=== PATIENT | male | born 1995 | race Caucasian/White ===

== ENCOUNTER 2017-11-07 15:21 | Emergency (ER) | payer OTHER ==
[2017-11-07 18:07] VITALS: BP 115/64
--- NOTE | 2017-11-07 18:28 | UC ---
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 He had some pain in his MCPJs yesterday evening and awoke with severe R shoulder pain. No associated injury or acute event that he can recall. No h/o of other joint pain or swelling. - History of Current Complaint Chief Complaint: UCUpperExtremity Stated Complaint: RIGHT HAND/SHOULDER PAIN Pain Intensity: 5 - Allergies/Home Medications Allergies/Adverse Reactions: Allergies Allergy/AdvReac Type Severity Reaction Status Date / Time MS Penicillins [Penicillins] Allergy Severe Hives, Verified 11/07/17 18:00 Vomiting Home Medications: Home Medications Tramadol HCl [Ultram] 50 mg PO QID PRN 11/07/17 [History Confirmed 11/07/17] PMH/Surg Hx/FS Hx/Imm Hx Previously Healthy: Yes - Surgical History Surgical History: Yes Surgery Procedure, Year, and Place: 2014 - Family History Known Family History: Positive: Hypertension Negative: Diabetes - Social History Alcohol Use: Weekly Substance Use Type: None Smoking Status (MU): Current Every Day Smoker Type: Cigarettes Amount Used/How Often: 1/2 PPD Length of Time of Smoking/Using Tobacco: started at age 16 Have You Smoked in the Last Year: Yes Household Exposure Type: Cigarettes - Immunization History Most Recent Influenza Vaccination: Not the Season Review of Systems Constitutional: Negative Skin: Negative Eyes: Negative ENT: Negative Respiratory: Negative Cardiovascular: Negative Gastrointestinal: Negative Genitourinary: Negative Motor: Decreased ROM Musculoskeletal: Arthralgia Neurological: Negative Psychological: Negative Is Patient Immunocompromised?: No All Other Systems Reviewed And Are Negative: Yes Physical Exam Triage Information Reviewed: Yes Appearance: Well-Appearing Vital Signs: Initial Vital Signs Temp 98.5 F 11/07/17 18:02 Pulse 66 11/07/17 18:02 Resp 18 11/07/17 18:02 BP 115/64 11/07/17 18:02 Pulse Ox 99 11/07/17 18:02 Vital Signs Reviewed: Yes ENT: Positive: Normal ENT inspection Neck exam: Normal Neck: Positive: Supple Respiratory: Positive: Chest non-tender, Lungs clear Cardiovascular Exam: Normal Cardiovascular: Positive: RRR, No Murmur Abdomen Description: Positive: Nontender Musculoskeletal: Positive: Other: - severely reduced ROM at the shoulder due to severe pain, unable to assess strength accurately due to pain. TTP diffusely including trapezius. Hand exam is benign Shoulder Course/Dx - Course Course Of Treatment: This is an otherwise healthy 22 yo male who presents with sudden onset shoulder pain without acute injury. - Differential Dx/Diagnosis Differential Diagnosis/HQI/PQRI: Arthritis, Bursitis, Contusion Provider Diagnoses: 1. R shoulder pain - likely muscle spasm Discharge - Discharge Plan Condition: Stable Disposition: HOME Prescriptions: Cyclobenzaprine TAB* [Flexeril 10 MG TAB*] 10 mg PO TID PRN #45 tab PRN Reason: muscle pain/spasm Naproxen Sodium [Anaprox Ds] 550 mg PO BID #28 tab Patient Education Materials: Shoulder Pain (ED) Forms: *Work Release Referrals: hZao Burdick MD [Primary Care Provider] - 1 Week Additional Instructions: Instructions: 1. Please take naproxen twice daily for 2 weeks (do no combine with ibuprofen) 2. Use flexeril as needed or as tolerated up to 3 times daily (be aware of sedating effects) 3. Follow up with PCP in 1 week to reassess
== END 2017-11-07 18:28 | disposition home or self-care (01) ==
LOC: UCCORT 15:21
DX: M25.511 Pain in right shoulder (principal); F17.210 Nicotine dependence, cigarettes, uncomplicated
CPT/HCPCS: 99212; G0463

== ENCOUNTER 2018-02-02 12:18 | Emergency (ER) | payer OTHER ==
[2018-02-02 13:50] VITALS: BP 122/65
[2018-02-02] MEDS ORDERED: Lidocaine 2% PF * 5 ML VIAL INJ ONE (14:07)
[2018-02-02] MEDS ORDERED: Lidocaine 2% PF * 5 ML VIAL ONE (14:07)
--- NOTE | 2018-02-02 14:26 | UC ---
Skin Complaint HPI - HPI Summary HPI Summary: Patient has access on the left side of his upper cheek on and off for the last several months he did open it himself it drained and went away. But the past 2 weeks has returned is now and soft in the center tense painful red - History of Current Complaint Chief Complaint: UCSkin Time Seen by Provider: 02/02/18 13:52 Stated Complaint: FACIAL SKIN COMPLAINT Hx Obtained From: Patient Onset/Duration: Gradual Onset, Lasting Weeks - 2, Still Present Timing: Constant Onset Severity: Mild Current Severity: Moderate Location: Discrete - left upper check Character: Pain, Redness, Raised Aggravating Factor(s): Touch Alleviating Factor(s): Nothing Associated Signs & Symptoms: Positive: Negative - Allergy/Home Medications Allergies/Adverse Reactions: Allergies Allergy/AdvReac Type Severity Reaction Status Date / Time Penicillins Allergy Nausea And Verified 02/02/18 13:48 Vomiting Review of Systems Constitutional: Negative Skin: Other - abscess left upper check Eyes: Negative ENT: Negative Respiratory: Negative Cardiovascular: Negative Gastrointestinal: Negative Genitourinary: Negative Motor: Negative Neurovascular: Negative Musculoskeletal: Negative Neurological: Negative Psychological: Negative Is Patient Immunocompromised?: No All Other Systems Reviewed And Are Negative: Yes PMH/Surg Hx/FS Hx/Imm Hx Previously Healthy: Yes - Surgical History Surgical History: Yes Surgery Procedure, Year, and Place: 2014 - Family History Known Family History: Positive: Hypertension Negative: Diabetes - Social History Occupation: Unemployed Lives: With Family Alcohol Use: Occasionally Substance Use Type: None Smoking Status (MU): Current Every Day Smoker Type: Cigarettes Amount Used/How Often: 3 per day Length of Time of Smoking/Using Tobacco: started at age 16 Have You Smoked in the Last Year: Yes Household Exposure Type: Cigarettes - Immunization History Most Recent Influenza Vaccination: Not the Season Physical Exam Triage Information Reviewed: Yes Appearance: Well-Appearing, No Pain Distress, Well-Nourished Vital Signs: Initial Vital Signs Temp 98.5 F 02/02/18 13:45 Pulse 78 02/02/18 13:45 Resp 16 02/02/18 13:45 BP 122/65 02/02/18 13:45 Pulse Ox 100 02/02/18 13:45 Vital Signs Reviewed: Yes Eye Exam: Normal Eyes: Positive: Conjunctiva Clear ENT Exam: Normal ENT: Positive: Normal ENT inspection, Hearing grossly normal. Negative: Nasal congestion, Trismus, Muffled voice, Hoarse voice, Sinus tenderness Dental Exam: Normal Neck exam: Normal Neck: Positive: Supple, Nontender Respiratory Exam: Normal Respiratory: Positive: Chest non-tender, No respiratory distress, No accessory muscle use Cardiovascular Exam: Normal Cardiovascular: Positive: RRR, Pulses Normal, Brisk Capillary Refill Musculoskeletal Exam: Normal Musculoskeletal: Positive: Strength Intact, ROM Intact, No Edema Neurological Exam: Normal Neurological: Positive: Alert, Muscle Tone Normal Psychological Exam: Normal Skin Exam: Normal Skin: Positive: Other - 1.5 cm red raised tense with fluctulant center abscesfollows left upper check Re-Evaluation - Re-Evaluation First Eval Change: Improved - Patient tolerated well dry sterile dressing applied, culture obtained Course/Dx - Course Course Of Treatment: Frequent warm washes and compresses, Bactrim pain medication for discomfort follow with PCP - Diagnoses Provider Diagnoses: Incision and drainage of abscess left upper cheek Procedures - Incision and Drainage Site: left upper cheek Anesthesia: Local, Lidocaine - 1 will /2 cc of 2 % the entire evening as I totally agree with letting people who have addictions run course LO like is with out epi Instrument(s): Scalpel - small miky made in fluctulant area moderate abount of purulent drainage-- Discharge - Sign-Out/Discharge Documenting (check all that apply): Discharge/Admit/Transfer - Discharge Plan Condition: Stable Disposition: HOME Prescriptions: Hydrocodone/Acetaminophen [Hydrocodone/Acetaminophen 5-325 mg] 1 tab PO Q6H PRN #5 tab MDD 4 PRN Reason: pain Sulfamethox/Trimethoprim DS* [Bactrim DS 800/160 TAB*] 1 tab PO BID #14 tab Patient Education Materials: Abscess (ED), Joint Incision and Drainage (DC), Heat Pack Application (ED) Referrals: Zhao Burdick MD [Primary Care Provider] - 1 Week - Billing Disposition and Condition Condition: STABLE Disposition: HOME
== END 2018-02-02 14:33 | disposition home or self-care (01) ==
LOC: UCCORT 12:18
DX: L02.01 Cutaneous abscess of face (principal); Z87.891 Personal history of nicotine dependence; Z88.0 Allergy status to penicillin
CPT/HCPCS: 10060; 87070; 87205; 99212; G0463

== ENCOUNTER 2019-10-24 10:35 | Emergency (ER) | payer SELFPAY ==
[2019-10-24 11:20] VITALS: BP 115/63
--- NOTE | 2019-10-24 11:28 | UC ---
Headache HPI - HPI Summary HPI Summary: 24yo male with migraine x2 days. Patient notes h/o migraine. Denies worst of his life. Describes as sharp pulsing pain in the front of his head." notes photophobia. Denies vision changes. Denies arm/leg weakness. Denies n/v. States he has taken tylenol and left over tramadol without relief. States he normally takes sumatriptan for migraines but does not currently have any. States has an appt in a couple days with pcp for refill. - History Of Current Complaint Stated Complaint: JO Hx Obtained From: Patient Pain Intensity: 10 Pain Scale Used: 0-10 Numeric - Allergies/Home Medications Allergies/Adverse Reactions: Allergies Allergy/AdvReac Type Severity Reaction Status Date / Time Penicillins AdvReac Nausea And Verified 10/24/19 11:16 Vomiting Home Medications: Home Medications Acetaminophen [Acetaminophen Extra Strength] 1,000 mg PO Q6H PRN 10/24/19 [ History Confirmed 10/24/19] traMADol TAB* [Ultram*] 50 mg PO ONCE 10/24/19 [History Confirmed 10/24/19] PMH/Surg Hx/FS Hx/Imm Hx Previously Healthy: Yes Neurological History: Migraine - Surgical History Surgical History: Yes Surgery Procedure, Year, and Place: 2014 - Family History Known Family History: Positive: Hypertension Negative: Diabetes - Social History Alcohol Use: Occasionally Substance Use Type: None Smoking Status (MU): Light Every Day Tobacco Smoker Type: Cigarettes Amount Used/How Often: ~1/7 PPD Length of Time of Smoking/Using Tobacco: Since Age 16 Have You Smoked in the Last Year: Yes Household Exposure Type: Cigarettes - Immunization History Most Recent Influenza Vaccination: Not the 2015/2016 Season Review of Systems All Other Systems Reviewed And Are Negative: Yes Constitutional: Positive: Negative. Negative: Fever, Chills Eyes: Positive: Photophobia. Negative: Blurred Vision, Diplopia Respiratory: Positive: Negative Cardiovascular: Positive: Negative Gastrointestinal: Positive: Negative. Negative: Vomiting, Nausea Musculoskeletal: Positive: Negative Neurological: Positive: Headache Physical Exam Triage Information Reviewed: Yes Appearance: Well-Appearing Vital Signs: Initial Vital Signs Temp 98.5 F 10/24/19 11:13 Pulse 60 10/24/19 11:13 Resp 14 10/24/19 11:13 BP 115/63 10/24/19 11:13 Pulse Ox 99 10/24/19 11:13 Vital Signs Reviewed: Yes Eye Exam: Other - PERRLA. EOM intact Eyes: Positive: Conjunctiva Clear ENT: Positive: Hearing grossly normal Neck: Positive: Supple, Nontender Respiratory Exam: Normal Respiratory: Positive: Lungs clear, Normal breath sounds, No respiratory distress Cardiovascular Exam: Normal Cardiovascular: Positive: RRR, No Murmur Neurological Exam: Other - CN II-XII intact Neurological: Positive: Alert Psychological: Positive: Age Appropriate Behavior Skin Exam: Normal Headache Course/Dx - Course Course Of Treatment: Patient received toradol IM here and voiced migraine relief after ~20 minutes. Patient states that he will follow up on Saturday with pcp for refill on migraine medications. I instructed to go to ED with any new or worsening symptoms. Patient voiced understanding and agreed with treatment plan. - Differential Dx/Diagnosis Differential Diagnosis/HQI/PQRI: Migraine, Tension Headache Provider Diagnosis: Migraine Discharge ED - Sign-Out/Discharge Documenting (check all that apply): Patient Departure All imaging exams completed and their final reports reviewed: No Studies - Discharge Plan Condition: Stable Disposition: HOME Patient Education Materials: Migraine Headache (ED) Forms: *Work Release Referrals: Zhao Burdick MD [Primary Care Provider] - 2 Days Additional Instructions: You received a shot of toradol for your migraine today. You may continue to take tylenol as directed for pain relief. Do not take any ibuprofen or other NSAID until tomorrow. Continue to rest. It is important that you attend your appointment with your primary care provider as scheduled for refill of your migraine medication. Go to the emergency room with any new or worsening symptoms. - Billing Disposition and Condition Condition: STABLE Disposition: Home
[2019-10-24] MEDS ORDERED: Ketorolac *IM* INJ* 60 MG/2 ML VIAL IM ONE (11:31)
== END 2019-10-24 12:22 | disposition home or self-care (01) ==
LOC: UCCORT 10:35
DX: G43.909 Migraine, unspecified, not intractable, without status migrainosus (principal); F17.210 Nicotine dependence, cigarettes, uncomplicated; Z88.0 Allergy status to penicillin
CPT/HCPCS: 96372; 99211; G0463; J1885

== ENCOUNTER 2019-10-27 11:26 | Emergency (ER) | payer SELFPAY ==
--- NOTE | 2019-10-27 12:25 | UC ---
FLU HPI - History of Current Complaint Stated Complaint: JO/COUGH Time Seen by Provider: 10/27/19 12:25 - Allergy/Home Medications Allergies/Adverse Reactions: Allergies Allergy/AdvReac Type Severity Reaction Status Date / Time Penicillins AdvReac Nausea And Verified 10/24/19 11:16 Vomiting PMH/Surg Hx/FS Hx/Imm Hx - Surgical History Surgical History: Yes Surgery Procedure, Year, and Place: 2014 - Family History Known Family History: Positive: Hypertension Negative: Diabetes - Social History Alcohol Use: Occasionally Substance Use Type: None Smoking Status (MU): Light Every Day Tobacco Smoker Type: Cigarettes Amount Used/How Often: ~1/7 PPD Length of Time of Smoking/Using Tobacco: Since Age 16 Have You Smoked in the Last Year: Yes Household Exposure Type: Cigarettes - Immunization History Most Recent Influenza Vaccination: Not the 2015/2016 Season Discharge ED - Discharge Plan Referrals: Zhao Burdick MD [Primary Care Provider] -
--- NOTE | 2019-10-27 12:44 | UC ---
FLU HPI - HPI Summary HPI Summary: 24 yo male presents with sinus symptoms. He tells me that he was seen here a few days ago for a migraine and had some mild sinus congestion at that time. His migraine is feeling much better, but his sinus congestion has gotten much worse. He is having pain/pressure/congestion mostly in the frontal sinuses. Has not been taking anything OTC for his symptoms. Denies fever, chills, sore throat , rash, cough. - History of Current Complaint Stated Complaint: JO/COUGH Time Seen by Provider: 10/27/19 12:25 Hx Obtained From: Patient Onset/Duration: Gradual Onset Severity Currently: Mild Severity Initially: Mild Pain Intensity: 4 Pain Scale Used: 0-10 Numeric - Allergy/Home Medications Allergies/Adverse Reactions: Allergies Allergy/AdvReac Type Severity Reaction Status Date / Time Penicillins AdvReac Nausea And Verified 10/27/19 12:41 Vomiting Home Medications: Home Medications Ibuprofen TAB* [Advil TAB*] 200 mg PO ONCE PRN 10/27/19 [History Confirmed 10/27] PMH/Surg Hx/FS Hx/Imm Hx - Additional Past Medical History Additional PMH: None - Surgical History Surgical History: Yes Surgery Procedure, Year, and Place: 2014 - Family History Known Family History: Positive: Hypertension Negative: Diabetes - Social History Occupation: Employed Full-time Lives: With Family Alcohol Use: Occasionally Substance Use Type: None Smoking Status (MU): Light Every Day Tobacco Smoker Type: Cigarettes Amount Used/How Often: ~1/7 PPD Length of Time of Smoking/Using Tobacco: Since Age 16 Have You Smoked in the Last Year: Yes Household Exposure Type: Cigarettes - Immunization History Most Recent Influenza Vaccination: Not the 2016/2016 Season Review of Systems All Other Systems Reviewed And Are Negative: No Constitutional: Positive: Negative Skin: Positive: Negative Eyes: Positive: Negative ENT: Positive: Nasal Discharge, Sinus Congestion, Sinus Pain/Tenderness Respiratory: Positive: Cough Cardiovascular: Positive: Negative Gastrointestinal: Positive: Negative Neurovascular: Positive: Negative Neurological: Positive: Negative Psychological: Positive: Negative Physical Exam - Summary Physical Exam Summary: GENERAL: NAD. WDWN. No pain distress. SKIN: No rashes, sores, lesions, or open wounds. HEENT: Head: AT/NC Eyes: EOM intact. Conjunctiva clear without inflammation or discharge. Ears: Hearing grossly normal. TMs intact, no bulging, erythema, or edema. Nose: Nasal mucosa mildly swollen and erythematous without discharge. TTP maxillary and frontal sinus. Positive post nasal drip Throat: Posterior oropharynx without exudates, erythema, or tonsillar enlargement. Uvula midline. NECK: Supple. Nontender. No lymphadenopathy. CHEST: CTAB. No r/r/w. No accessory muscle use. Breathing comfortably and in no distress. CV: RRR. Pulses intact. NEURO: Alert. PSYCH: Age appropriate behavior. Triage Information Reviewed: Yes Vital Signs: Vital Signs: Temp Pulse Resp BP Pulse Ox 97.8 F 73 16 114/67 99 10/27/19 12:42 10/27/19 12:42 10/27/19 12:42 10/27/19 12:42 10/27/19 12:42 Vital Signs Reviewed: Yes Flu Course/Dx - Course Course Of Treatment: Sinusitis - Differential Dx/Diagnosis Provider Diagnosis: Sinusitis Discharge ED - Sign-Out/Discharge Documenting (check all that apply): Patient Departure All imaging exams completed and their final reports reviewed: No Studies - Discharge Plan Condition: Stable Disposition: HOME Prescriptions: Azithromycin TAB* [Zithromax TAB (Z-ISAIAS) 250 mg #6 tabs] 2 tab PO .TODAY, THEN 1 DAILY #1 isaias Patient Education Materials: Sinusitis (ED) Forms: *Work Release Referrals: Zhao Burdick MD [Primary Care Provider] - Additional Instructions: If you develop a fever, shortness of breath, chest pain, new or worsening symptoms - please call your PCP or go to the ED immediately. - Billing Disposition and Condition Condition: STABLE Disposition: Home
[2019-10-27 12:45] VITALS: BP 114/67
[2019-10-27 13:03] LABS: Influenza A Molecular NEGATIVE (Negative); Influenza B Molecular NEGATIVE (Negative)
== END 2019-10-27 13:07 | disposition home or self-care (01) ==
LOC: UCCORT 11:26
DX: J32.9 Chronic sinusitis, unspecified (principal); F17.210 Nicotine dependence, cigarettes, uncomplicated; Z88.0 Allergy status to penicillin
CPT/HCPCS: 99212; G0463

== ENCOUNTER 2019-12-08 13:06 | Emergency (ER) | payer SELFPAY ==
[2019-12-08 13:32] VITALS: BP 108/58
--- NOTE | 2019-12-08 13:46 | UC ---
Hand/Wrist HPI - HPI Summary HPI Summary: pain left middle finger x more than 4 weeks pain is 6 out 10 , worse with movements, better with rest, + swelling, no redness, has been having limited ROM the past 4 days, difficulty extend and flex the finger no known injury - History Of Current Complaint Chief Complaint: UCUpperExtremity Stated Complaint: LEFT MIDDLE FINGER Time Seen by Provider: 12/08/19 13:35 Hx Obtained From: Patient Onset/Duration: Gradual Onset, Lasting Weeks - 5, Still Present Severity Initially: Moderate Severity Currently: Moderate Pain Intensity: 7 Character Of Pain: Aching Aggravating Factor(s): Movement Alleviating Factor(s): Nothing Associated Signs And Symptoms: Positive: Swelling. Negative: Redness, Bruising , Fever, Weakness, Numbness/Tingling - Allergies/Home Medications Allergies/Adverse Reactions: Allergies Allergy/AdvReac Type Severity Reaction Status Date / Time Penicillins AdvReac Nausea And Verified 12/08/19 13:31 Vomiting Home Medications: Home Medications Ibuprofen TAB* [Advil TAB*] 200 mg PO ONCE PRN 10/27/19 [History Confirmed 12/07] PMH/Surg Hx/FS Hx/Imm Hx Neurological History: Migraine - Surgical History Surgical History: Yes Surgery Procedure, Year, and Place: 2014 - Family History Known Family History: Positive: Hypertension Negative: Diabetes - Social History Alcohol Use: Occasionally Substance Use Type: None Smoking Status (MU): Light Every Day Tobacco Smoker Type: Cigarettes Amount Used/How Often: ~1/7 PPD Length of Time of Smoking/Using Tobacco: Since Age 16 Have You Smoked in the Last Year: Yes Household Exposure Type: Cigarettes - Immunization History Most Recent Influenza Vaccination: Not the Season Review of Systems All Other Systems Reviewed And Are Negative: Yes Is Patient Immunocompromised?: No Physical Exam Triage Information Reviewed: Yes Appearance: Well-Appearing, No Pain Distress, Well-Nourished Vital Signs: Initial Vital Signs Temp 98.3 F 12/08/19 13:27 Pulse 67 12/08/19 13:27 Resp 14 12/08/19 13:27 BP 108/58 12/08/19 13:27 Pulse Ox 97 12/08/19 13:27 Vital Signs Reviewed: Yes Eye Exam: Normal Eyes: Positive: Conjunctiva Clear ENT: Positive: Normal ENT inspection, Hearing grossly normal, Pharynx normal Neck: Positive: Supple, Nontender, No Lymphadenopathy Respiratory: Positive: Chest non-tender, Lungs clear, Normal breath sounds Cardiovascular: Positive: RRR, No Murmur, Pulses Normal Musculoskeletal: Positive: Other: - left 3rd finger, + swelling, diffuse tenderness, more at PIP and MCP joint limited ROM on flexion and extension , limited strength Diagnostics - Radiology No standard instances Radiology Interpretation Completed By: Radiologist Summary of Radiographic Findings: xray report left 3rd finger: IMPRESSION: NO ACUTE OSSEOUS INJURY. IF SYMPTOMS PERSIST, RECOMMEND REPEAT IMAGING. Hand/Wrist Course/Dx - Differential Dx/Diagnosis Provider Diagnosis: Trigger finger Discharge ED - Sign-Out/Discharge Documenting (check all that apply): Patient Departure All imaging exams completed and their final reports reviewed: Yes - Discharge Plan Condition: Stable Disposition: HOME Patient Education Materials: Trigger Finger (ED) Referrals: Patel Phillips MD [Medical Doctor] - As Soon As Possible No Primary Care Phys,NOPCP [Primary Care Provider] - - Billing Disposition and Condition Condition: STABLE Disposition: Home
== END 2019-12-08 14:06 | disposition home or self-care (01) ==
LOC: UCCORT 13:06
DX: M65.331 Trigger finger, right middle finger (principal); G43.909 Migraine, unspecified, not intractable, without status migrainosus; F17.210 Nicotine dependence, cigarettes, uncomplicated; Z88.0 Allergy status to penicillin
CPT/HCPCS: 73140; 99211; G0463